=== PATIENT | male | born 1985 | race Hispanic/Latino ===

== ENCOUNTER 2016-09-07 16:18 | Emergency (ER) | payer OTHER ==
[~2016-09-07] VITALS: Ht 180.3 cm; Wt 83.0 kg
[2016-09-07] MEDS ORDERED: IBUP600T26 PO (16:27)
[2016-09-07] MEDS ORDERED: methylPREDNISolone INJ 125 MG/2 ML VIAL (J2930) IM ONE (17:00)
[2016-09-07] MEDS ORDERED: PRED20TA PO (17:20)
[2016-09-07] MEDS ORDERED: VALI5TAB PO (17:20)
[2016-09-07 17:27] VITALS: BP 138/80
== END 2016-09-07 17:36 | disposition home or self-care (01) ==
LOC: M ED 17:05
DX: S39.012A Strain of muscle, fascia and tendon of lower back, initial encounter (principal); X50.0XXA Overexertion from strenuous movement or load, initial encounter; Y92.89 Other specified places as the place of occurrence of the external cause; Y93.89 Activity, other specified; Y99.8 Other external cause status; M54.9 Dorsalgia, unspecified; G89.29 Other chronic pain
CPT/HCPCS: 96372; 99282; J2930

== ENCOUNTER → 2016-11-12 | Outpatient (REF) ==
[~2016-11-12] MED LIST: IBUP-1022 PO; PRED20TA PO; VALI5TAB PO
== END ==
LOC: M LAB 10:41
PROVIDERS: ATTEND Nurse Practitioner Adult Health
DX: Z02.1 Encounter for pre-employment examination (principal)